=== PATIENT | male | born 1945 | race Caucasian/White ===

== ENCOUNTER → 2021-09-27 | Outpatient (CLI) | payer MEDICARE, BC ==
[2021-09-27 13:24] LABS: HEMOGLOBIN 14.8 gm/dl (14.0-17.5); RED BLOOD COUNT 4.32 M/UL (4.20-5.50); WHITE BLOOD COUNT 4.6 K/UL (4.5-11.0)
[2021-09-27 13:49] LABS: BUN/CREATININE RATIO 16 (0-10)
== END ==
LOC: LAB 12:43
PROVIDERS: Nurse Practitioner Women's Health
DX: Z02.89 Encounter for other administrative examinations (principal); M19.90 Unspecified osteoarthritis, unspecified site; M79.7 Fibromyalgia
CPT/HCPCS: 36415; 80053; 85025